=== PATIENT | female | born 1985 | race African-American/Black ===

== ENCOUNTER 2023-10-27 09:03 | Emergency (ER) | payer BC ==
[~2023-10-27] VITALS: Ht 170.2 cm; Wt 77.1 kg
[2023-10-27] MEDS ORDERED: DEXAMETHASONE SODIUM PHOSPHATE 4 MG/ML VIAL IM STA (10:06)
[2023-10-27] MEDS ORDERED: DIPHENHYDRAMINE HCL 50 MG/ML VIAL 1ML IM STA (10:06)
== END 2023-10-27 10:57 | disposition home or self-care (01) ==
LOC: ER 09:03
DX: S80.861A Insect bite (nonvenomous), right lower leg, initial encounter (principal); S80.862A Insect bite (nonvenomous), left lower leg, initial encounter; W57.XXXA Bitten or stung by nonvenomous insect and other nonvenomous arthropods, initial encounter; Y93.89 Activity, other specified; Y92.89 Other specified places as the place of occurrence of the external cause